=== PATIENT | female | born 1990 | race Caucasian/White ===

== ENCOUNTER 2019-04-07 21:03 | Emergency (ER) | payer MEDICAID, OTHER ==
[~2019-04-07] VITALS: Ht 170.2 cm; Wt 72.6 kg
[2019-04-07 21:09] VITALS: BP_SYST 122
--- NOTE | 2019-04-07 21:14 | NUR ---
Patient to ER bed chair to gown for evaluation. Side rails up. Report given to Brendan YANG.
--- NOTE | 2019-04-07 21:20 | NUR ---
Pt C/O fever, RT ear pain, and nausea since yesterday. Took Tylenol with minimal relief. Denies chest pain, shortness of breath, vomiting or any ojther symptoms at this time. Will continue to monitor.
--- NOTE | 2019-04-07 21:25 | NUR ---
ER Dr. Baker at bedside examining patient.
[2019-04-07 21:39] VITALS: BP_SYST 122
--- NOTE | 2019-04-07 21:41 | NUR ---
Patient given written and verbal discharge instructions and verbalizes understanding. ER MD discussed with patient the results and treatment provided. Patient in stable condition. ID arm band removed. Rx of Augmentin and Naproxyn given. Patient educated on pain management and to follow up with PMD. Pain Scale 3/10 tolerable for pt . Opportunity for questions provided and answered. Medication side effect fact sheet provided.
== END 2019-04-07 21:39 | disposition home or self-care (01) ==
LOC: SED 21:03
DX: H66.91 Otitis media, unspecified, right ear (principal)
CPT/HCPCS: 99283